=== PATIENT | male | born 1995 | race African-American/Black ===

== ENCOUNTER 2017-01-17 09:48 | Emergency (ER) | payer OTHER ==
[2017-01-17 09:54] VITALS: BP 118/63; PULSE 74; TEMP 98.2; BMI 21.1
--- NOTE | 2017-01-17 10:36 | PDOC ---
History of Present Illness - General Chief Complaint: Sore Throat Stated Complaint: THROAT PAIN Time Seen by Provider: 01/17/17 10:26 History Source: Patient Exam Limitations: No Limitations - History of Present Illness Initial Comments: 01/17/17 11:39 Chief complaint: Sore throat 3 days History of Present Illness: patient is a 21-year-old male with no significant medical history here today complaining of sore throat 3 days. Patient denies any nasal congestion, cough, nausea area. Patient is unsure whether or not he has had fever. Patient denies any difficulty swallowing or breathing. Patient denies any recent travel or any known sick contacts. 01/17/17 11:49 Past History - Past Medical History Allergies/Adverse Reactions: Allergies Allergy/AdvReac Type Severity Reaction Status Date / Time No Known Allergies Allergy Verified 01/17/17 09:50 Home Medications: Ambulatory Orders Amoxicillin Suspension - 1,000 mg PO DAILY #125 ml 01/17/17 Other medical history: denies - Psycho/Social/Smoking Cessation Hx Anxiety: No Suicidal Ideation: No Smoking History: Never smoked Have you smoked in the past 12 months: No Information on smoking cessation initiated: No Hx Alcohol Use: No Drug/Substance Use Hx: No Substance Use Type: None Review of Systems - Review of Systems Able to Perform ROS?: Yes Constitutional: No: Symptoms Reported HEENTM: Yes: Throat Pain Respiratory: No: Symptoms reported Cardiac (ROS): No: Symptoms Reported ABD/GI: No: Symptoms Reported : No: Symptoms Reported Musculoskeletal: No: Symptoms Reported Integumentary: No: Symptoms Reported Neurological: No: Symptoms reported *Physical Exam - Vital Signs Last Vital Signs Temp Pulse Resp BP Pulse Ox 98.2 F 74 18 118/63 100 01/17/17 09:50 01/17/17 09:50 01/17/17 09:50 01/17/17 09:50 01/17/17 09:50 - Physical Exam General Appearance: Yes: Appropriately Dressed HEENT: positive: TMs Normal, Pharyngeal Erythema, Tonsillar Erythema (WITH NO UVULAR DEVIATION ). negative: Tonsillar Exudate Neck: negative: Lymphadenopathy (R), Lymphadenopathy (L) Respiratory/Chest: positive: Lungs Clear, Normal Breath Sounds. negative: Chest Tender, Respiratory Distress Cardiovascular: positive: Regular Rhythm, Regular Rate, S1, S2 Integumentary: positive: Normal Color Neurologic: positive: Alert, Normal Response, Responsive Medical Decision Making - Medical Decision Making 01/17/17 11:49 patient is a 21-year-old male with no significant medical history here today complaining of sore throat 3 days. Patient denies any nasal congestion, cough, nausea area. Patient is unsure whether or not he has had fever. Patient denies any difficulty swallowing or breathing. Patient denies any recent travel or any known sick contacts. TONSILLITS R/O STREP PLAN: THROAT C & S RAPID + FOR BETA HEMOLYTIC STREP AMOXICILLIN 400MG/5 ML TAKE 12.5ML 1000 MG DAILY FOR 10 DAYS 01/17/17 11:53 *DC/Admit/Observation/Transfer Diagnosis at time of Disposition: Streptococcal tonsillitis - Discharge Dispostion Disposition: HOME Condition at time of disposition: Stable - Referrals Referrals: Harshad Kim [Primary Care Provider] - - Patient Instructions Additional Instructions: Drink A lot a fluids and rest Throw Out toothbrush at end of treatment Ibuprofen or acetaminophen as needed as directed by sock liner Patient voiced understanding of discharge instructions and all questions were answered
== END 2017-01-17 11:56 | disposition home or self-care (01) ==
LOC: JERFT 09:48
DX: J03.01 Acute recurrent streptococcal tonsillitis (principal); B95.0 Streptococcus, group A, as the cause of diseases classified elsewhere
CPT/HCPCS: 87070; 87077; 87430; 99281-25

== ENCOUNTER 2017-10-14 15:14 | Emergency (ER) | payer OTHER ==
[2017-10-14 15:20] VITALS: BP 115/72; PULSE 92; TEMP 98.7; BMI 21.9
--- NOTE | 2017-10-14 15:20 | PDOC ---
Rapid Medical Evaluation Chief Complaint: Cold Symptoms Time Seen by Provider: 10/14/17 15:19 Medical Evaluation: Allergies Allergy/AdvReac Type Severity Reaction Status Date / Time No Known Allergies Allergy Verified 10/14/17 15:15 10/14/17 15:19 I have performed a brief in person evaluation of this patient. The patient presents with chief complaint of : cold symptoms 3 weeks , took tylenol this AM Pertinent PE findings: none I have ordered the following: none The patient will proceed to the ER for further evaluation.
--- NOTE | 2017-10-14 16:06 | PDOC ---
History of Present Illness - General Chief Complaint: Cold Symptoms Stated Complaint: COUGH, CONGESTED Time Seen by Provider: 10/14/17 15:19 History Source: Patient Exam Limitations: No Limitations - History of Present Illness Initial Comments: 10/14/17 16:36 Patient came for evaluation of persistent cough 3 weeks. has been using multiple different medication type, [id number] medications, home remedies , antihistamines with minimal resolved. is been using frequent Tylenol dosing so is uncertain as to fevers. has some yellowish phlegm production and feels mildly tight. No one else at home sick, is not a smoker. 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 Timing/Duration: reports: changing over time Severity: reports: mild, moderate Associated Symptoms: reports: cough, nasal congestion, wheezing Past History - Travel Traveled outside of the country in the last 30 days: No Close contact w/someone who was outside of country & ill: No - Past Medical History Allergies/Adverse Reactions: Allergies Allergy/AdvReac Type Severity Reaction Status Date / Time No Known Allergies Allergy Verified 10/14/17 15:15 Home Medications: Ambulatory Orders Albuterol Sulfate Inhaler - [Ventolin HFA Inhaler -] 1 - 2 inh PO Q4H #1 inhaler 10/14/17 Fluticasone Prop 0.05% Nasal [Flonase] 2 spray NS BID #1 spraybtl 10/14/17 predniSONE [Deltasone -] 20 mg PO BID #8 tablet 10/14/17 COPD: No - Suicide/Smoking/Psychosocial Hx Smoking History: Never smoked Have you smoked in the past 12 months: No Information on smoking cessation initiated: No Hx Alcohol Use: No Drug/Substance Use Hx: No Substance Use Type: None Review of Systems - Review of Systems Able to Perform ROS?: Yes Is the patient limited Italian proficient: Yes Constitutional: Yes: Symptoms Reported, See HPI, Loss of Appetite, Malaise. No : Fever HEENTM: Yes: Symptoms Reported, See HPI, Nose Congestion Respiratory: Yes: Symptoms reported, See HPI, Cough, Wheezing Musculoskeletal: Yes: See HPI. No: Symptoms Reported Integumentary: Yes: See HPI. No: Symptoms Reported Neurological: Yes: Symptoms reported, See HPI All Other Systems: Reviewed and Negative *Physical Exam - Vital Signs Last Vital Signs Temp Pulse Resp BP Pulse Ox 98.7 F 92 H 18 115/72 100 10/14/17 15:16 10/14/17 15:16 10/14/17 15:16 10/14/17 15:16 10/14/17 15:16 - Physical Exam General Appearance: Yes: Nourished, Appropriately Dressed, Mild Distress HEENT: positive: TMs Normal (ingested but landmarks easily visualized) Neck: positive: Supple, Lymphadenopathy (R), Lymphadenopathy (L) Respiratory/Chest: positive: Wheezing. negative: Lungs Clear, Normal Breath Sounds (tightness with deep inspiration, faint wheezing noted), Respiratory Distress Cardiovascular: positive: Regular Rhythm Gastrointestinal/Abdominal: positive: Soft. negative: Tender Musculoskeletal: positive: Normal Inspection Extremity: positive: Normal Capillary Refill, Normal Inspection, Normal Range of Motion Integumentary: positive: Normal Color, Warm Neurologic: positive: psychology associate II-XII NML intact, Fully Oriented, Alert, Normal Mood/ Affect, Normal Response, Motor Strength 5/5 Progress Note - Progress Note Progress Note: Chest x-ray negative for infiltrates or pneumo. Is much improved after second DuoNeb and prednisone administration. We will continue conservative measures as patient has no indication of any bacterial infection requiring antibiotics. Discussed continued use of albuterol inhaler, prednisone for another 4 days, and Flonase for postnasal drainage. Encouraged to follow-up with PMD this week *DC/Admit/Observation/Transfer Diagnosis at time of Disposition: Reactive airway disease Qualifiers: Asthma severity: moderate - Discharge Dispostion Disposition: HOME Condition at time of disposition: Stable Admit: No - Referrals Referrals: Harshad Kim [Primary Care Provider] - - Patient Instructions Printed Discharge Instructions: DI for Viral Upper Respiratory Infection -- Adult Additional Instructions: Rest, drink lots of fluids: Teas, water, soups, Pedialyte Saltwater gargles Steamy showers/seem to face break up mucus Avoid contact with others until fevers and cough resolved Lots of handwashing and good hygiene Continue [id number] medications for symptomatic relief Tylenol or Motrin for fever and pain Continue albuterol nebulizers every 4-6 hours for the next 2 days then as needed for continued cough Prednisone as directed until completed Followup with private physician in one to 2 days Return to emergency department / pediatric hospital for worsened symptoms, fevers, dehydration - Post Discharge Activity Forms/Work/School Notes: Back to Work
[2017-10-14] MEDS ORDERED: ALBUTEROL SO4 2.5/IPRATROPIUM 0.5 INH SOL 3 ML VIAL.NEB. NEB ONE (16:33)
[2017-10-14] MEDS ORDERED: predniSONE 20 MG TABLET (UD) PO ONE (16:33)
[2017-10-14] MEDS ORDERED: predniSONE 20 MG TABLET (UD) ONE (16:49)
== END 2017-10-14 18:14 | disposition home or self-care (01) ==
LOC: JERFT 15:14
PROC: 3E0F7GC Introduction of Other Therapeutic Substance into Respiratory Tract, Via Natural or Artificial Opening (ICD-10-PCS; principal; 2017-10-14)
DX: J45.40 Moderate persistent asthma, uncomplicated (principal)
CPT/HCPCS: 71046-TC-FY; 94640; 99281-25

== ENCOUNTER 2017-10-17 16:23 | Emergency (ER) | payer OTHER ==
--- NOTE | 2017-10-17 16:55 | PDOC ---
Rapid Medical Evaluation Time Seen by Provider: 10/17/17 16:54 Medical Evaluation: Allergies Allergy/AdvReac Type Severity Reaction Status Date / Time No Known Allergies Allergy Verified 10/14/17 15:15 10/17/17 16:54 Pt c/o: sore throat and fever Pt on brief exam: + erythema to soft palate Pt ordered for : rapid strep Pt to proceed to the ED Discharge Disposition - Diagnosis Sore throat - Referrals - Patient Instructions - Post Discharge Activity
[2017-10-17 17:02] VITALS: BP 123/65; PULSE 88; TEMP 98.2; BMI 21.9
--- NOTE | 2017-10-17 18:03 | PDOC ---
History of Present Illness - General Chief Complaint: Sore Throat Stated Complaint: SORE THROAT Time Seen by Provider: 10/17/17 16:54 History Source: Patient Exam Limitations: No Limitations - History of Present Illness Initial Comments: 10/17/17 18:01 Patient is a 21-year-old male, no significant medical history currently on no medication presents for sore throat, dysphagia, tactile fever. Past Medical History: [Denies]. Allergies: No known allergies Medications: [None] Family History: Non-contributory Social History: Denies smoking, alcohol use, or IVDU Review of Systems GENERAL/CONSTITUTIONAL: [Tactile fever. No weakness. No weight change.] HEAD, EYES, EARS, NOSE AND THROAT: [No change in vision. No ear pain or discharge. Sore throat. ] CARDIOVASCULAR: [No chest pain or shortness of breath.] RESPIRATORY: [No cough, wheezing, or hemoptysis.] GASTROINTESTINAL: [No nausea, vomiting, diarrhea or constipation. No rectal bleeding.] GENITOURINARY: [No dysuria, frequency, or change in urination.] MUSCULOSKELETAL: [No joint or muscle swelling or pain. No neck or back pain.] SKIN AND BREASTS: [No rash or easy bruising.] NEUROLOGIC: [No headache, vertigo, loss of consciousness, or loss of sensation.] PSYCHIATRIC: [No depression or anxiety.] ENDOCRINE: [No increased thirst. No abnormal weight change.] HEMATOLOGIC/LYMPHATIC: [No anemia, easy bleeding, or history of blood clots.] ALLERGIC/IMMUNOLOGIC: [No hives or skin allergy. No latex allergy.] Physical Exam: GENERAL: [The patient is awake, alert, and fully oriented, in no acute distress. ] EYES: [Pupils equal, round and reactive to light, extraocular movements intact, sclera anicteric, conjunctiva clear.] ENT: [Ears normal, nares patent, erythematous without exudates. Moist mucous membranes. No uvula deviation] NECK: [Normal range of motion, supple without lymphadenopathy, JVD, or masses.] LUNGS: [Breath sounds equal, clear to auscultation bilaterally. No wheezes, and no crackles.] HEART: [Regular rate and rhythm, normal S1 and S2 without murmur, rub or gallop. ] ABDOMEN: [Soft, nontender, normoactive bowel sounds. No guarding, no rebound. No masses. No bruising or abrasions] MUSCULOSKELETAL: [Normal range of motion, no edema. No clubbing or cyanosis. No cords, erythema, or tenderness. No CVA Tenderness with fist.] NEUROLOGICAL: [Cranial nerves II through XII grossly intact. Normal speech, normal gait.] SKIN: [Warm, Dry, normal turgor, no rashes or lesions noted.] Past History - Past Medical History Allergies/Adverse Reactions: Allergies Allergy/AdvReac Type Severity Reaction Status Date / Time No Known Allergies Allergy Verified 10/17/17 17:00 Home Medications: Ambulatory Orders Azithromycin Suspension [Zithromax Suspension -] 200 mg PO ASDIR #40 ml COPD: No - Suicide/Smoking/Psychosocial Hx Smoking History: Never smoked Have you smoked in the past 12 months: No Hx Alcohol Use: No Drug/Substance Use Hx: No Substance Use Type: None *Physical Exam - Vital Signs Last Vital Signs Temp Pulse Resp BP Pulse Ox 98.2 F 88 18 123/65 97 10/17/17 17:01 10/17/17 17:01 10/17/17 17:01 10/17/17 17:01 10/17/17 17:01 ED Treatment Course - ADDITIONAL ORDERS Additional order review: 10/17/17 17:00 Group A Strep Rapid Antigen - Final Throat Medical Decision Making - Medical Decision Making 10/17/17 18:03 A/P: She here for sore throat, positive strep, will DC on azithromycin, Motrin for fever, Decadron 10 mg by mouth 1 given. *DC/Admit/Observation/Transfer Diagnosis at time of Disposition: Strep pharyngitis - Discharge Dispostion Disposition: HOME Condition at time of disposition: Stable Admit: No - Prescriptions Prescriptions: Azithromycin Suspension [Zithromax Suspension -] 200 mg PO ASDIR #40 ml - Referrals Referrals: Harshad Kim [Primary Care Provider] - - Patient Instructions Printed Discharge Instructions: DI for Strep Throat Additional Instructions: 1. Increase fluid. 2. Pedialyte or Gatorade. 3. Please change toothbrush within 3 days of starting antibiotics. 4. Warm saltwater gargles. 5. Please follow up with PMD in 3 days if symptoms not resolving. 6. Please return to the ER unable to drink or eat, increased fever or other concerns - Post Discharge Activity Forms/Work/School Notes: Back to Work
[2017-10-17] MEDS ORDERED: DEXAMETHASONE LIQUID 0.5 MG/5 ML 240 ML BULK BOTTLE PO ONE (18:06)
[2017-10-17] MEDS ORDERED: DEXAMETHASONE SOD PHOSPHATE 10 MG/1 ML VIAL ONE (18:11)
== END 2017-10-17 18:16 | disposition home or self-care (01) ==
LOC: JERFT 16:23
DX: J02.0 Streptococcal pharyngitis (principal); B95.0 Streptococcus, group A, as the cause of diseases classified elsewhere
CPT/HCPCS: 87070; 87430; 99281-25

== ENCOUNTER 2018-02-13 13:50 | Emergency (ER) | payer OTHER ==
[2018-02-13 14:22] VITALS: BP 131/71; PULSE 85; TEMP 98.1; BMI 20.3
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
[2018-02-13] MEDS ORDERED: IBUPROFEN 600 MG TABLET (FP) PO ONE ×2 (15:21→15:24)
[2018-02-13] MEDS ORDERED: ACETAMINOPHEN 500 MG TABLET (FP) PO ONE (15:25)
[2018-02-13] MEDS ORDERED: ACETAMINOPHEN 325 MG TABLET (FP) ONE (15:26)
== END 2018-02-13 15:28 | disposition home or self-care (01) ==
LOC: JER 13:50
DX: S00.83XA Contusion of other part of head, initial encounter (principal); V49.49XA Driver injured in collision with other motor vehicles in traffic accident, initial encounter; W22.11XA Striking against or struck by driver side automobile airbag, initial encounter; Y92.488 Other paved roadways as the place of occurrence of the external cause; Y93.89 Activity, other specified; Y99.8 Other external cause status
CPT/HCPCS: 70450-TC; 99281-25

== ENCOUNTER 2018-07-23 15:21 | Emergency (ER) | payer OTHER ==
--- NOTE | 2018-07-23 15:44 | PDOC ---
Rapid Medical Evaluation Chief Complaint: Respiratory Time Seen by Provider: 07/23/18 15:42 Medical Evaluation: Allergies Allergy/AdvReac Type Severity Reaction Status Date / Time No Known Allergies Allergy Verified 02/13/18 14:10 07/23/18 15:42 I have performed a brief in-person evaluation of this patient. The patient presents with a CC of: cough HPI: Pt is 22 YO male with a hx of a productive cough x 1 week. Pertinent PE: Skin: Clear Lungs: Clear Heart: RRR MS. Moves all extremities Neuro: Alert Psych: Age appropriate. The patient will proceed to [facility] for further evaluation. Discharge Disposition - Diagnosis Cough - Referrals - Patient Instructions - Post Discharge Activity
[2018-07-23 15:45] VITALS: BP 111/66; PULSE 89; TEMP 98.9; BMI 21.9
--- NOTE | 2018-07-23 16:01 | PDOC ---
History of Present Illness - General Chief Complaint: Respiratory Stated Complaint: COLD SYMPTOMS Time Seen by Provider: 07/23/18 15:42 - History of Present Illness Initial Comments: 07/23/18 16:00 22-year-old male without comorbidities fully immunized, presents for evaluation of cough 7 days now developing a fever since last night. Fever is subjective and unmeasured. Past History - Past Medical History Allergies/Adverse Reactions: Allergies Allergy/AdvReac Type Severity Reaction Status Date / Time No Known Allergies Allergy Verified 07/23/18 15:43 Home Medications: Ambulatory Orders Azithromycin [Zithromax -] 250 mg PO UTDICT #6 tab 07/23/18 Guaifenesin Dm [Robitussin Dm -] 10 ml PO Q8H #120 cup 07/23/18 Asthma: Yes COPD: No - Suicide/Smoking/Psychosocial Hx Smoking History: Never smoked Have you smoked in the past 12 months: No Hx Alcohol Use: No Drug/Substance Use Hx: No Substance Use Type: None Review of Systems - Review of Systems Constitutional: Yes: Fever Respiratory: Yes: Cough *Physical Exam - Vital Signs Last Vital Signs Temp Pulse Resp BP Pulse Ox 98.9 F 89 19 111/66 99 07/23/18 15:43 07/23/18 15:43 07/23/18 15:43 07/23/18 15:43 07/23/18 15:43 - Physical Exam Comments: 07/23/18 16:00 HEAD: NC/AT EYES: Conjuntiva clear Ears: Canals and TM's normal NOSE: No d/c THROAT: Moist mucous membrances, oral pharanx clear, uvula midline NECK: Supple without adenopathy CARDIAC: S1 S2 LUNGS: CTA Full and Equal breath sounds ABDOMEN: Soft NT ND MS: Full ROM in all joints without edema NEUROLOGIC: No gross sensory or motor deficits, NVID SKIN: Normal color and temperature no lesions or rashes Moderate Sedation - Procedure Monitoring Vital Signs: Procedure Monitoring Vital Signs Temperature 98.9 F 07/23/18 15:43 Pulse Rate 89 07/23/18 15:43 Respiratory Rate 19 07/23/18 15:43 Blood Pressure 111/66 07/23/18 15:43 O2 Sat by Pulse Oximetry (%) 99 07/23/18 15:43 *DC/Admit/Observation/Transfer Diagnosis at time of Disposition: Cough, Bronchitis - Discharge Dispostion Disposition: HOME Condition at time of disposition: Stable Decision to Admit order: No - Prescriptions Prescriptions: Azithromycin [Zithromax -] 250 mg PO UTDICT #6 tab Guaifenesin Dm [Robitussin Dm -] 10 ml PO Q8H #120 cup - Referrals Referrals: Aura Tucker MD [Staff Physician] - - Patient Instructions Printed Discharge Instructions: DI for Acute Bronchitis Additional Instructions: Return to the emergency room should symptoms worsen or go unresolved. Please take the antibiotics as directed as well as the cough syrup. Follow-up with internal medicine in one to 2 days for further evaluation and treatment options. Tylenol and Motrin as directed for fever - Post Discharge Activity
== END 2018-07-23 16:12 | disposition home or self-care (01) ==
LOC: JERFT 15:21
DX: J40 Bronchitis, not specified as acute or chronic (principal); R05 Cough
CPT/HCPCS: 99281-25

== ENCOUNTER 2019-02-13 20:29 | Emergency (ER) | payer OTHER ==
[2019-02-13 20:38] VITALS: BP 118/64; PULSE 108; TEMP 98.6; BMI 22.7
--- NOTE | 2019-02-13 20:38 | PDOC ---
Rapid Medical Evaluation Chief Complaint: Pain Time Seen by Provider: 02/13/19 20:35 Medical Evaluation: Allergies Allergy/AdvReac Type Severity Reaction Status Date / Time No Known Allergies Allergy Verified 02/13/19 20:37 Vital Signs Temp Pulse Resp BP Pulse Ox 98.6 F 108 H 18 118/64 97 02/13/19 20:35 02/13/19 20:35 02/13/19 20:35 02/13/19 20:35 02/13/19 20:35 02/13/19 20:38 I have performed a brief in-person evaluation of this patient. The patient presents with a chief complaint of: rectal pain, nausea Pertinent physical exam findings:stable and in NAD, non-focal I have ordered the following:labs The patient will proceed to the ED for further evaluation.
[2019-02-13] MEDS ORDERED: ONDANSETRON *ODT* 4 MG TABLET SL ONE (21:10)
--- NOTE | 2019-02-13 21:26 | PDOC ---
History of Present Illness - General Chief Complaint: Pain Stated Complaint: ABD/PAIN/NAUSEA Time Seen by Provider: 02/13/19 20:35 History Source: Patient Exam Limitations: No Limitations - History of Present Illness Initial Comments: 02/13/19 21:12 HISTORY OF PRESENT ILLNESS: 23-year-old male denies medical history presents emergency department for evaluation of nausea and perirectal pain for the past 2 days. He reports perirectal pain is 8/10 describes as a "burning, stinging, sharp sensation." Patient reports the pain is worse when he moves his bowels but does have pain while sitting. Patient noted scant blood on toilet paper when wiping yesterday. No blood noted since then. Patient reports is been having unprotected intercourse with one male partner. Patient denies any constipation, diarrhea, rectal bleeding, penile discharge. No recent travel or sick contacts. PAST MEDICAL HISTORY: Denies past medical history SURGICAL HISTORY: Denies ALLERGIES: No known drug allergies REVIEW OF SYSTEMS General/Constitutional: Denies fever or chills. Denies weakness, weight change. HEENT: Denies change in vision. Denies ear pain or discharge. Denies sore throat. Cardiovascular: Denies chest pain or shortness of breath. Respiratory: Denies cough, wheezing, or hemoptysis. Gastrointestinal: see HPI Genitourinary: Denies dysuria, frequency, or change in urination. Musculoskeletal: Denies joint or muscle swelling or pain. Denies neck or back pain. Skin and breasts: Denies rash or easy bruising. Neurologic: Denies headache, vertigo, loss of consciousness, or loss of sensation. Psychiatric: Denies depression or anxiety. Endocrine: Denies increased thirst. Denies abnormal weight change. Hematologic/Lymphatic: Denies anemia, easy bleeding, or history of blood clots. Allergic/Immunologic: Denies hives or skin allergy. Denies latex allergy. PHYSICAL EXAM General Appearance: Well-appearing, appropriately dressed. No apparent distress , no intoxication. Respiratory/Chest: Lungs CTAB. No shortness of breath, chest tenderness, respiratory distress, accessory muscle use. No crackles, rales, rhonchi, stridor , wheezing, dullness Cardiovascular: RRR. S1, S2. No JVD, murmur, bradycardia, tachycardia. Gastrointestinal/Abdominal: Normal bowel sounds. Abdomen soft, non-distended. No tenderness or rebound tenderness. No organomegaly, pulsatile mass, guarding, hernia, hepatomegaly, splenomegaly. 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 Multiple lesions present to the internal cavity of the anus. Unable to perform direct visualization due to lack of anoscope. Lymphatic: No adenopathy, tenderness. 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 Fully oriented, alert. Appropriate mood/affect. Motor strength 5/5. No appreciable EOM palsy, facial droop or sensory deficit. Past History - Past Medical History Allergies/Adverse Reactions: Allergies Allergy/AdvReac Type Severity Reaction Status Date / Time No Known Allergies Allergy Verified 02/13/19 20:37 Home Medications: Ambulatory Orders Azithromycin [Zithromax -] 250 mg PO UTDICT #6 tab 07/23/18 Guaifenesin Dm [Robitussin Dm -] 10 ml PO Q8H #120 cup 07/23/18 Oxycodone HCl/Acetaminophen [Percocet 5-325 mg Tablet] 1 tab PO Q6H PRN #20 tablet MDD 4 02/13/19 Asthma: Yes COPD: No - Suicide/Smoking/Psychosocial Hx Smoking History: Never smoked Have you smoked in the past 12 months: No Hx Alcohol Use: No Drug/Substance Use Hx: No Substance Use Type: None *Physical Exam - Vital Signs Last Vital Signs Temp Pulse Resp BP Pulse Ox 98.6 F 108 H 18 118/64 97 02/13/19 20:35 02/13/19 20:35 02/13/19 20:35 02/13/19 20:35 02/13/19 20:35 ED Treatment Course - LABORATORY CBC & Chemistry Diagram: 02/13/19 21:30 02/13/19 21:30 Medical Decision Making - Medical Decision Making 02/13/19 21:26 A/P: 23-year-old male with anogenital warts This patient has sex with men therefore I will perform STI testing including HIV , GC, RPR. There is no penile discharge I will defer treatment of GC until results have returned. We'll refer for GI follow-up for reevaluation as well as direct visualization using anoscope. 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 As discussed, a screening test for the HIV virus was performed today. The preliminary results of your HIV test are Positive, which means you may have HIV. 2. The blood sample that was obtained will be sent out for further testing and confirmation. A confirmed Positive result is indicative of HIV infection, which is currently a lifelong condition. 3. As discussed, all test results are completely confidential. The results of your testing will not be released without your prior authorization. The law protects you from discrimination based on your HIV status. 4. As discussed, there are many benefits to antiretroviral therapy (ART) including suppressing the viral load. 5. As per the [facility] Department of Health, we have arranged for a follow-up appointment for medical care given your preliminary HIV positive results. If you were previously HIV positive and lost access to medical care, please use this referral as it is important to restart medical care. 6. As discussed, you must immediately adopt behavior changes to prevent HIV transmission to others (avoid unprotected sex or needle-sharing). 7. By law, any sex or needle-sharing partners that may have been exposed to HIV must be notified and they need to be tested. At risk partners can seek testing from their Primary Care Providers or they can go to https:// epic cupid analyst.aids.gov/ - Find HIV Testing Sites & Care Services - AIDS.gov. Enter a zip code to find a service facility near them. Take Percocet one tablet every 6 hours as needed for rectal pain. 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 Call to schedule an appointment for evaluation and potential treatment of the warts. Return to the emergency department for any new or worsening symptoms. Thank you very much for choosing us to provide your emergent health care needs. - Post Discharge Activity Forms/Work/School Notes: HIV [facility]
[2019-02-13] MEDS ORDERED: ONDANSETRON *ODT* 4 MG TABLET ONE (21:29)
[2019-02-13 22:03] LABS: BASO % 0.4 % (0-2.0); EOS % 1.6 % (0-4.5); HEMATOCRIT 42.4 % (35.4-49); HEMOGLOBIN 14.2 GM/dL (11.7-16.9); LYMPH % 32.3 % (8-40); MCH 29.1 pg (25.7-33.7); MCHC 33.4 g/dl (32.0-35.9); MEAN CELL VOLUME 87.1 fl (80-96); MEAN PLT VOLUME 8.9 fl (7.5-11.1); MONO % 7.5 % (3.8-10.2); NEUT % 58.2 % (42.8-82.8); PLATELET COUNT 235 K/MM3 (134-434); RBC 4.87 M/mm3 (4.00-5.60); RDW 12.7 % (11.9-15.9)
[2019-02-13 22:20] LABS: ALBUMIN 4.3 g/dl (3.4-5.0); BILIRUBIN,TOTAL 0.4 mg/dL (0.2-1); BLOOD UREA NITROGEN 11.9 mg/dL (7-18); CALCIUM 9.3 mg/dL (8.5-10.1); CREATININE 1.2 mg/dL (0.55-1.3); POTASSIUM 4.1 mmol/L (3.5-5.1); TOT PROT 8.7 g/dl (6.4-8.2)
[2019-02-13 22:23] LABS: EPI CELLS 2.1 /HPF (0-5/HPF); HYALINE CASTS 7 /lpf (0-8); PH,URINE 8.5 (5.0-8.0); URINE APPEARANCE CLEAR; URINE BACTERIA 4.9 /hpf (NEGATIVE); URINE BILIRUBIN NEGATIVE (NEGATIVE); URINE COLOR YELLOW; URINE GLUCOSE (UA) NEGATIVE (NEGATIVE); URINE KETONE TRACE (NEGATIVE); URINE LEUK ESTERASE NEGATIVE (NEGATIVE); URINE NITRITE NEGATIVE (NEGATIVE); URINE PROTEIN 3+ (NEGATIVE); URINE RBC 4 /hpf (0-4); URINE WBC 1 /hpf (0-5)
== END 2019-02-13 23:23 | disposition home or self-care (01) ==
LOC: JER 20:29
DX: A63.0 Anogenital (venereal) warts (principal); Z21 Asymptomatic human immunodeficiency virus [HIV] infection status; J45.909 Unspecified asthma, uncomplicated
CPT/HCPCS: 36415; 80053; 81003; 85025; 86593; 87389; 87491; 87591; 99281-25; Q0162

== ENCOUNTER 2020-05-17 18:33 | Emergency (ER) | payer OTHER ==
[2020-05-17 18:49] VITALS: BP 123/76; PULSE 84; TEMP 98.3; BMI 21.1
[2020-05-17] MEDS ORDERED: IBUPROFEN 600 MG TABLET (FP) PO ONE ×2 (18:54→18:57)
--- NOTE | 2020-05-17 19:03 | PDOC ---
History of Present Illness - General Chief Complaint: Sore Throat Stated Complaint: PAIN Time Seen by Provider: 05/17/20 18:41 History Source: Patient Exam Limitations: No Limitations - History of Present Illness Initial Comments: 05/17/20 18:59 24-year-old male history of strep throat twice in his lifetime, last episode 2 years ago presents complaining of throat pain similar to prior strep throat infections for 24 hours with mild left earache. Denies fever, chills, cough, chest pain, shortness of breath, abdominal pain, known sick contacts, recent travel or any other complaints. Patient took acetaminophen today at 6 AM. ROS: as above PE: GENERAL: well-appearing, NAD HEAD: NCAT EYES: Pupils equal, round and reactive to light, sclera anicteric, conjunctiva clear ENT: pharynx: Mild erythema erythema, mild exudate, uvula midline NECK: supple, small, tender mobile submandibular lymph node palpated CHEST: nontender RESP: clear, no w/r/r CARDIO: rrr, no m/g/r ABD: +BS, soft, nontender, non distended BACK: no midline spinal ttp, no CVAT EXTREMITIES: Normal range of motion, no edema NEUROLOGICAL: Normal speech, normal gait SKIN: Warm, Dry Is this a multiple visit Asthma Patient?: No Past History - Medical History Allergies/Adverse Reactions: Allergies Allergy/AdvReac Type Severity Reaction Status Date / Time No Known Allergies Allergy Verified 05/17/20 18:43 Home Medications: Ambulatory Orders Multivitamin,Ther and Minerals [Vitamin and Minerals] 1 each PO DAILY #30 tablet 02/16/19 Bictegrav/Emtricit/Tenofov Ala [Biktarvy 50-200-25 mg Tablet] 1 each PO DAILY #30 tablet 04/07/20 Amoxicillin - [Amoxicillin 500mg Capsule -] 500 mg PO BID #14 capsule 05/17/20 Asthma: Yes (childhood) Cancer: No Cardiac Disorders: No COPD: No Diabetes: No HTN: No Liver Disease: No Seizures: No Thyroid Disease: No - Psycho-Social/Smoking History Smoking History: Never smoked Have you smoked in the past 12 months: No Information on smoking cessation initiated: No - Substance Abuse Hx (Audit-C & DAST Scrn) How often the patient has a drink containing alcohol: Never Score: In Men: 4 or > Positive; In Women: 3 or > Positive: 0 Screen Result (Pos requires Nsg. Audit-10AR): Negative In the last yr the pt used illegal drug/Rx for NonMed reason: No Score: Yes response is considered Positive: 0 Screen Result (Positive result requires Nsg. DAST-10): Negative *Physical Exam - Vital Signs Last Vital Signs Temp Pulse Resp BP Pulse Ox 98.3 F 84 17 123/76 97 05/17/20 18:39 05/17/20 18:39 05/17/20 18:39 05/17/20 18:39 05/17/20 18:39 ED Treatment Course - Medications Given in the ED: ED Medications Discontinued Medications Generic Name Dose Route Start Last Admin Trade Name Freq PRN Reason Stop Dose Admin Ibuprofen 600 mg 05/17/20 18:54 05/17/20 18:57 Motrin - PO 05/17/20 18:55 600 mg ONCE ONE Administration Medical Decision Making - Medical Decision Making 05/17/20 19:03 24-year-old male history of strep throat twice in his lifetime, last episode 2 years ago presents complaining of throat pain similar to prior strep throat infections for 24 hours with mild left earache. Denies fever, chills, cough, chest pain, shortness of breath, abdominal pain, known sick contacts, recent travel or any other complaints. Patient took acetaminophen today at 6 AM. P.o. ibuprofen 600 mg Rapid strep sent Throat culture sent 05/17/20 19:26 rx for amoxicillin sent to pharm Negative rapid strep stable for discharge, will call back with throat cx results 05/17/20 19:27 05/17/20 19:29 Discharge - Discharge Information Problems reviewed: Yes Clinical Impression/Diagnosis: Pharyngitis Qualifiers: Pharyngitis/tonsillitis etiology: unspecified etiology Qualified Code(s): J02.9 - Acute pharyngitis, unspecified Condition: Stable Disposition: HOME - Admission No - Follow up/Referral Referrals: Felix Lorenz MD [Primary Care Provider] - - Patient Discharge Instructions Additional Instructions: Take amoxicillin 500 mg 1 tablet twice a day Take ibuprofen 600 mg every 6 hours as needed for pain Return to ED if you develop fever, chills, abdominal pain, vomiting, neck swelling, worsening throat pain or any concerns - Post Discharge Activity
== END 2020-05-17 19:33 | disposition home or self-care (01) ==
LOC: JER 18:33
DX: J02.9 Acute pharyngitis, unspecified (principal)
CPT/HCPCS: 87070; 87880; 99283-25